=== PATIENT | female | born 1970 | race Two or more races ===

== ENCOUNTER 2018-09-26 21:37 | Emergency (ER) | payer MEDICAID ==
[~2018-09-26] VITALS: Ht 147.3 cm; Wt 58.1 kg
[2018-09-26 21:50] VITALS: BP 122/55
[2018-09-26] MEDS ORDERED: NKM (21:51)
[2018-09-26] MEDS ORDERED: Methocarbamol 750mg tab ORAL ONE (22:30)
[2018-09-26] MEDS ORDERED: ROBAXIN-750750 MG PO (23:34)
[2018-09-26] MEDS ORDERED: LIDODERM700 M1 TOPIC (23:34)
[2018-09-26] MEDS ORDERED: IBUPROFEN600 MG ORAL (23:34)
[2018-09-26 23:38] VITALS: BP 125/60
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
== END 2018-09-26 23:38 | disposition home or self-care (01) ==
LOC: EMR 22:07
DX: S16.1XXA Strain of muscle, fascia and tendon at neck level, initial encounter (principal); V43.52XA Car driver injured in collision with other type car in traffic accident, initial encounter; Y92.410 Unspecified street and highway as the place of occurrence of the external cause
CPT/HCPCS: 99283